=== PATIENT | male | born 1990 | race African-American/Black ===

== ENCOUNTER 2024-06-04 23:16 | Emergency (ER) | payer SELFPAY ==
[~2024-06-04] VITALS: Ht 180.3 cm; Wt 105.0 kg
[2024-06-04 23:31] VITALS: TEMP 36.7; O2SAT 99
[2024-06-05] MEDS ORDERED: MORPHINE SULFATE 4 MG/ML INJ (FOR IV/IM USE) IV STA (00:17)
[2024-06-05 00:50] LABS: BASOPHILS % 0.5 % (0.0-2.0); EOSINOPHILS % 0.3 % (0.0-5.0); HEMATOCRIT. 45.3 % (42.0-52.0); HEMOGLOBIN. 15.7 g/dL (14.0-18.0); LYMPHOCYTES % 14.4 % (20.0-50.0); MEAN CORPUSCULAR HEMOGLOBIN 31.9 pg (28.0-32.0); MEAN CORPUSCULAR HGB CONC 34.6 g/dL (31.0-37.0); MEAN CORPUSCULAR VOLUME 92.1 fL (80.0-94.0); MONOCYTES % 7.4 % (2.0-8.0); NEUTROPHILS % 77.4 % (40.0-76.0); PLATELET 218 x1000/uL (130-400); RED BLOOD CELL COUNT 4.91 mill/uL (4.7-6.1); WHITE BLOOD COUNT 11.8 x1000/uL (4.5-11.0)
[2024-06-05 00:58] LABS: CHLORIDE 106 mEq/L (98-107); POTASSIUM 3.9 mEq/L (3.5-5.1); SODIUM 142 mEq/L (136-145)
[2024-06-05 00:59] LABS: CALCIUM 9.7 mg/dL (8.7-10.4); CARBON DIOXIDE 27 mEq/L (21-32)
[2024-06-05 01:04] LABS: CREATININE 0.8 mg/dL (0.6-1.3); GLUCOSE 105 mg/dL (70-105); UREA NITROGEN BLOOD 14 mg/dL (9-23)
[2024-06-05] MEDS: ONDANSETRON HCL 4MG/2ML INJ IV STA (03:07)
[2024-06-05] MEDS: SODIUM CHLORIDE 0.9% 1,000 ML IV ONE (03:08)
[2024-06-05] MEDS: ONDANSETRON HCL 4MG/2ML INJ IV NR (03:10)
[2024-06-05] MEDS: MORPHINE SULFATE 4 MG/ML INJ (FOR IV/IM USE) IV NR (03:11)
[2024-06-05] MEDS ORDERED: IBUP-2029 MT (03:14)
[2024-06-05] MEDS ORDERED: T3 PO (03:14)
[2024-06-05] MEDS ORDERED: METR-167 MT (03:14)
[2024-06-05] MEDS ORDERED: CEPH500C2 MT (03:14)
[2024-06-05] MEDS: KETOROLAC 15MG/ML VIAL IV ONE (03:24)
[2024-06-05 03:30] LABS: CLARITY URINE CLEAR (CLEAR); COLOR URINE YELLOW (YELLOW); GLUCOSE URINE NEGATIVE (NEGATIVE); KETONES URINE NEGATIVE (NEGATIVE); LEUKOCYTE ESTERASE URINE NEGATIVE (NEGATIVE); NITRITE URINE NEGATIVE (NEGATIVE); OCCULT BLOOD URINE NEGATIVE (NEGATIVE); PH URINE 6.5 (4.5-8.0); PROTEIN URINE NEGATIVE (NEGATIVE); SPECIFIC GRAVITY URINE 1.029 (1.005-1.030)
[2024-06-05 04:03] VITALS: BP 112/84; PULSE 91; RESP 18; O2SAT 99
== END 2024-06-05 04:05 | disposition home or self-care (01) ==
LOC: ER 23:16 → EDBD 23:16 → ER 06-05 04:05
DX: R10.9 Unspecified abdominal pain (principal)
CPT/HCPCS: 99285; 80048; 81003; 83605; 85025; 36415; 74176; 93976; 76870; 96361; 96374; 96375; J1885; J2405; J2270; J7030; Z7610 ×2